=== PATIENT | male | born 1940 ===

== ENCOUNTER 2016-04-20 15:05 | Inpatient (IN) | payer MEDICARE ==
[2016-04-20] MEDS ORDERED: DULCOLAX PR PRN (16:43)
[2016-04-20] MEDS ORDERED: ALUM-MAG HYDROX-SIMETH 200-200-20MG/5ML PO PRN (16:43)
[2016-04-20] MEDS ORDERED: D50W (25GM) IV PRN (16:43)
--- NOTE | 2016-04-20 17:31 | History and Physical Report ---
History of Present Illness Date: 04/20/16 Referring Facility: [facility] Date of admission: 04/20/16 15:05 Chief Complaint: Non-traumatic Brain injury, s/p craniotomy for meningioma resection History of present illness: POST ADMISSION PHYSICIAN EVALUATION ONSET DATE: 04/10/2016 IMPAIRMENT GROUP CODE: 02.1 ETIOLOGIC DIAGNOSIS: Non-traumatic Brain injury, s/p craniotomy for meningioma resection STATUS CHANGES SINCE PREADMISSION SCREENING: PAS has been reviewed. In comparison, pt with no bowel movement in 2 days; condom cath is in place; has required increases in insulin coverage due to elevated blood sugars due to steroids (180s-300s). Pt continues with functional deficits and is appropriate for IRU admission at this time. PREVIOUS FUNCTIONAL STATUS: S/U to Independent for ADLs, gait and transfers CURRENT FUNCTIONAL STATUS: per PAS, s/u to maxA for ADLs; maxA x2 for bed mobility HPI 76 y.o. male with prior history of CVA, seizure disorder, and known meningioma who presented initially to [facility] due to recurrent hypoglycemic events and increased seizures at home. CT Brain was completed and pt was recommended for transfer to [facility] for Neurosurgical evaluation of brain mass. Per daughter, pt had been having seizures and known of mass since 2014, however , on new presentation mass found to have increased in size. Pt also noted to have had worsening left sided weakness from baseline residual of CVA and increased frequency of seizures leading up to recent hospitalization. MRI Brain noted high right parietal/posterior right frontal extra-axial mass with lytic invasion through the high right parietal bone and a large component involving the right parietal scalp, extending minimally into the occipital scalp. Pt also noted to have an additional dural based mass along the right parietal lobe. Pt was taken for craniotomy on 04/14 for partial resection; on steroid taper and Keppra; seen by rad/onc, however pt states at this time he does not want radiation. Acute care course was complicated by acute encephalopathy; ongoing worsening of left sided weakness as this was the same side affected following CVA, now exacerbated by right brain mass; steroid induced hyperglycemia and leukocytosis; uncontrolled hypertension requiring cardene drip, now on oral meds; eliquis held for AFib until cleared to resume per Neurosurgery post-op; acute renal insufficiency. Pt continues with significant functional decline from baseline and cognitive deficits post-op; now admitted to IRU for aggressive therapies and ongoing medical management. Past History Past Medical History: atrial fib (eliquis on hold), cancer (bladder and brain), diabetes, hypertension, seizures, stroke, other (BPH, glaucoma, abdominal hernia ) Past Surgical History: Other (bladder surgery) Social history: lives with family. denies: smoking (former), alcohol abuse Family history: diabetes, hypertension, stroke Medications and Allergies Allergies Allergy/AdvReac Type Severity Reaction Status Date / Time No Known Allergies Allergy Verified 04/20/16 16:28 Active Meds: Active Medications Acetaminophen (Tylenol) 650 mg PO Q4H PRN PRN Reason: Pain MILD(1-3)/Fever >100.5/SAMPSON Al Hydrox/Mg Hydrox/Simethicone (Alum-Mag Hydrox-Simeth [id number]/5ml) 30 ml PO Q4H PRN PRN Reason: Indigestion Amlodipine Besylate (Norvasc) 10 mg PO QDAY [facility] Bisacodyl (Dulcolax) 10 mg [place] QDAY PRN PRN Reason: Constipation unrelieved by MOM Brimonidine Tartrate (Alphagan P 0.15%) 1 drops OU Q8HR [facility] Carvedilol (Coreg) 12.5 mg PO BID [facility] Dexamethasone (Decadron) 2 mg PO TID [facility] Stop: 04/27/16 23:59 Dexamethasone (Decadron) 1 mg PO TID [facility] Stop: 05/05/16 05:59 Dexamethasone (Decadron) 1 mg PO BID [facility] Stop: 05/12/16 05:59 Dexamethasone (Decadron) 1 mg PO QDAY [facility] Stop: 05/19/16 05:59 Dextrose (D50w (25gm)) 50 ml IV PRN PRN PRN Reason: Hypoglycemia Docusate Sodium (Colace) 100 mg PO BID [facility] Gabapentin (Neurontin) 600 mg PO TID [facility] Hydralazine HCl (Apresoline) 25 mg PO Q8HR [facility] Hydrochlorothiazide (Hctz) 12.5 mg PO QDAY [facility] Insulin Aspart (Novolog) 0 units SUB-Q AC [facility] PRN Reason: Protocol Insulin Detemir (Levemir) 35 units SUB-Q QHS [facility] Levetiracetam (Keppra) 1,000 mg PO BID [facility] Losartan Potassium (Cozaar) 100 mg PO QDAY [facility] Oxycodone/Acetaminophen (Percocet 5/325) 1 tab PO Q6H PRN PRN Reason: Pain, Moderate (4-6) Simvastatin (Zocor) 20 mg PO QHS [facility] Tamsulosin HCl (Flomax) 0.4 mg PO QDAY [facility] Review of Systems All systems: negative Constitutional: no poor appetite Ears, nose, mouth and throat: no headache Cardiovascular: no chest pain, no lightheadedness Respiratory: no cough, no shortness of breath Gastrointestinal: constipation (2 days since last bowel movement), no nausea, no vomiting Genitourinary Male: other (condom cath in place) Neurological: weakness (left extremities), numbness (left extremities) Exam - Constitutional Vitals: Vital Signs - 12hr 04/20/16 15:05 Temperature 98.2 F Pulse Rate [ 63 Right] Respiratory 20 Rate Blood Pressure 176/82 [Right Arm] O2 Sat by Pulse 98 Oximetry General appearance: no acute distress, other (daughter present) - EENT Eyes: EOM intact ENT: hearing intact - Neck Neck: supple, normal ROM - Respiratory Respiratory effort: normal Respiratory: bilateral: CTA - Cardiovascular Heart Sounds: Present: S1 & S2 - Extremities Extremity abnormal: edema (mild at left hand), other (stephon to scalp open to air; no active drainage) - Gastrointestinal General gastrointestinal: Present: soft, non-tender, non-distended, normal bowel sounds, hernia (reducible) - Musculoskeletal Musculoskeletal: left sided weakness (3/5, except left foot drop, 0/5 ankle DF) - Neurologic Neurologic: CNII-XII intact, other (decreased sensation on left extremities) - Psychiatric Psychiatric: appropriate mood/affect, intact judgment & insight, memory intact, cooperative - Labs Labs: Laboratory Results - last 72 hr 04/20/16 16:25 POC Glucose 223 H Assessment and Plan Assessment and plan: 76 y.o. male s/p craniotomy for meningioma resection, worsening left sided weakness from baseline; also with noted cognitive deficits, acute renal failure , uncontrolled DM and HTN post-operatively. The patient is medically stable, however, requires ongoing medical management. Pt is appropriate for inpatient rehabilitation admission and is thought to be able to tolerate at least 3 hours of therapy a day, 5 days a week including 1 hour of physical therapy, 1 hour of occupational therapy, and 1 hour of speech therapy. Patient is able to understand and follow basic directions and has attainable rehab goals. Potential barriers/complications include falls, pressure ulcers, recurrent seizures, hyponatremia, DVT, PE, CVA off eliquis for AFib, infection. Plan 1. Rehabilitation- Pt will undergo multidisciplinary/integrative rehab PT/OT/ RN TRANSPLANT, Nursing. Areas to be addressed include, but are not limited to PT for mobility, strengthening, transfer training, ROM, endurance, stairs, balance; OT for ADLs, household tasks, adaptive equipment; RN TRANSPLANT for cognition; Nursing for carryover of therapies, pain control, education, skin integrity, medication management, bowel/bladder management; Nutrition as needed; instructional support services director for discharge planning and equipment needs. Potential interventions include appropriate assistive device or adaptive equipment. Expected overall level of functional improvement by discharge is Melvin to CGA for ADLs, supervision-CGA for transfers and gait. Pt will tentatively be discharged home with outpatient PT/OT/RN TRANSPLANT. Estimated length of stay is 2-3 weeks. 2. non-traumatic brain injury- s/p craniotomy for partial meningioma resection ; follow for headaches; maintain stephon until POD#10; continue steroid taper per Neurosurgery recs 3. seizure d/o- continue Keppra; seizure precautions 4. acute renal failure- noted on labs; recheck labs in AM 5. DM- lantus (sub as levemir in-house); SSI; ADA diet; weaning off steroids 6. HTN- continue current meds; adjust as needed 7. glaucoma- continue eye drops 8. BPH- continue flomax 9. 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- worsening left sided weakness, left foot drop - Patient Problems (1) Meningioma Current Visit: Yes Status: Acute (2) Seizure disorder Current Visit: Yes Status: Acute (3) History of cerebrovascular accident (CVA) with residual deficit Current Visit: Yes Status: Acute (4) Hemiparesis affecting left side as late effect of cerebrovascular accident Current Visit: Yes Status: Acute (5) Left foot drop Current Visit: Yes Status: Acute (6) Diabetes Current Visit: Yes Status: Acute Qualifiers: Diabetes mellitus type: type 2 Diabetes mellitus complication status: with hyperglycemia Diabetes mellitus complication detail: D Diabetic retinopathy severity: D Proliferative retinopathy type: P Diabetes mellitus macular edema: D Diabetes mellitus laborer cook house insulin use: with laborer cook house use Laterality: L Chronic kidney disease stage: C Qualified Code(s): E11.65 - Type 2 diabetes mellitus with hyperglycemia; Z79.4 - shelter (current) use of insulin (7) HTN (hypertension) Current Visit: Yes Status: Acute Qualifiers: Hypertension type: essential hypertension Qualified Code(s): I10 - Essential (primary) hypertension
[2016-04-20] MEDS: DECADRON PO SCH (21:45)
[2016-04-20] MEDS: APRESOLINE PO SCH (21:46)
[2016-04-20] MEDS: COREG PO SCH (21:47)
[2016-04-20] MEDS: KEPPRA PO SCH (21:47)
[2016-04-20] MEDS: ALPHAGAN P 0.15% OU SCH (21:48)
[2016-04-20] MEDS: COLACE PO SCH (21:48)
[2016-04-20] MEDS: ZOCOR PO SCH ×2 (21:49→22:46)
[2016-04-20] MEDS: NEURONTIN PO SCH ×3 (21:50→22:05)
[2016-04-20] MEDS: NEURONTIN ONE ×2 (21:50→22:40)
[2016-04-20] MEDS ORDERED: ZOCOR ONE (21:55)
[2016-04-20] MEDS: LEVEMIR SUB-Q SCH (22:41)
[2016-04-21 05:00] LABS: Hematocrit 33.4 % (35.5-45.6); Hemoglobin 10.8 gm/dl (11.8-15.2); Mean Corpuscular HGB Conc 32 % (32-34); Mean Corpuscular Hemoglobin 29 pg (28-32); Mean Corpuscular Volume 89 fl (84-94); Platelet Count 308 K/mm3 (140-440); Red Blood Count 3.75 M/mm3 (3.65-5.03); Red Cell Distribution Width 15.2 % (13.2-15.2); White Blood Count 11.8 K/mm3 (4.5-11.0)
[2016-04-21 05:22] LABS: Albumin 2.6 g/dL (3.9-5); BUN/Creatinine Ratio 42.5; Bilirubin,Total 0.2 mg/dL (0.1-1.2); Calcium 8.1 mg/dL (8.4-10.2); Chloride 99.2 mmol/L (98-107); Potassium 4.5 mmol/L (3.6-5.0); Total Protein 5.2 g/dL (6.3-8.2)
[2016-04-21 05:53] LABS: Basophils % (Manual) 0 % (0.0-1.8); Blastocytes % (Manual) 0 %; Diff Status Complete; Eosinophils % (Manual) 0 % (0.0-4.3); Platelet Estimate Consistent w Auto; RBC Morphology Normal
[2016-04-21] MEDS: ALPHAGAN P 0.15% OU SCH ×3 (06:00→22:34)
[2016-04-21] MEDS: APRESOLINE PO SCH ×3 (06:45→23:37)
[2016-04-21] MEDS ORDERED: NEURONTIN PO SCH (08:00)
[2016-04-21] MEDS ORDERED: HCTZ PO SCH (08:00)
[2016-04-21] MEDS: COZAAR PO SCH (08:53)
[2016-04-21] MEDS: COREG PO SCH ×2 (08:55→22:20)
[2016-04-21] MEDS: COLACE PO SCH ×2 (08:55→22:19)
[2016-04-21] MEDS: NEURONTIN PO SCH ×3 (08:56→22:17)
[2016-04-21] MEDS: KEPPRA PO SCH ×2 (08:56→22:16)
[2016-04-21] MEDS: FLOMAX PO SCH (08:57)
[2016-04-21] MEDS: NORVASC PO SCH (08:57)
[2016-04-21] MEDS: DECADRON PO SCH ×3 (08:57→22:28)
[2016-04-21] MEDS: NOVOLOG SUB-Q SCH ×3 (09:00→17:35)
--- NOTE | 2016-04-21 15:18 | Progress Note ---
Assessment and Plan 76 y.o. male s/p craniotomy for meningioma resection, worsening left sided weakness from baseline; also with noted cognitive deficits, acute renal failure , uncontrolled DM and HTN post-operatively - non-traumatic brain injury- s/p craniotomy for partial meningioma resection; follow for headaches; maintain stephon until POD#10; continue steroid taper per Neurosurgery recs - seizure d/o- continue Keppra; seizure precautions - acute renal failure- BUN stable at 51; continue to follow - DM- levemir QHS; SSI; ADA diet; resume scheduled mealtime insulin in next 2-3 days; suspect insulin requirements will decrease as steroids are weaned; previously required BID Levemir prior to admission at higher doses of steroids - HTN- d/c HCTZ due to elevated BUN; continue to follow - 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- worsening left sided weakness due to recurrent seizures and enlargement of meningioma, left foot drop ; will likely require AFO at discharge - Patient Problems (1) Meningioma Current Visit: Yes Status: Acute (2) Seizure disorder Current Visit: Yes Status: Acute (3) History of cerebrovascular accident (CVA) with residual deficit Current Visit: Yes Status: Acute (4) Hemiparesis affecting left side as late effect of cerebrovascular accident Current Visit: Yes Status: Acute (5) Left foot drop Current Visit: Yes Status: Acute (6) Diabetes Current Visit: Yes Status: Acute Qualifiers: Diabetes mellitus type: type 2 Diabetes mellitus complication status: with hyperglycemia Diabetes mellitus complication detail: D Diabetic retinopathy severity: D Proliferative retinopathy type: P Diabetes mellitus macular edema: D Diabetes mellitus airline customer service agent insulin use: with airline customer service agent use Laterality: L Chronic kidney disease stage: C Qualified Code(s): E11.65 - Type 2 diabetes mellitus with hyperglycemia; Z79.4 - group home (current) use of insulin (7) HTN (hypertension) Current Visit: Yes Status: Acute Qualifiers: Hypertension type: essential hypertension Qualified Code(s): I10 - Essential (primary) hypertension Subjective Date of service: 04/21/16 Principal diagnosis: NTBI, s/p craniotomy for meningioma resection Interval history: Pt seen in PT gym this afternoon; F/U IPR course for NTBI, s/p craniotomy for meningioma resection. Pt is without any new complaints; ongoing cognitive/ processing deficits noted, left sided weakness Objective - Constitutional Vitals: Vital Signs - 12hr 04/21/16 04/21/16 04/21/16 06:45 08:00 08:53 Temperature 97.6 F Pulse Rate 52 L 57 L Pulse Rate [ 57 L Right Brachial] Respiratory 20 Rate Blood Pressure 164/82 143/73 Blood Pressure 143/73 [Right Arm] O2 Sat by Pulse 98 Oximetry 04/21/16 04/21/16 04/21/16 08:55 10:00 14:21 Temperature Pulse Rate 57 L 63 Pulse Rate [ Right Brachial] Respiratory 20 Rate Blood Pressure 143/73 162/84 Blood Pressure [Right Arm] O2 Sat by Pulse 98 Oximetry General appearance: Present: no acute distress, other (lying on mat) - EENT Eyes: EOM intact ENT: hearing intact, other (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) - Neck Neck: supple - Respiratory Respiratory effort: normal Extremities: No edema - Gastrointestinal General gastrointestinal: Present: soft, non-tender, hernia - Integumentary Integumentary: clear - Musculoskeletal Musculoskeletal: left sided weakness (left foot drop; otherwise 2-3/5 for left extremities) - Neurologic Neurologic: CNII-XII intact - Psychiatric Psychiatric: appropriate mood/affect, no memory intact (oriented to self/place/ date; however, processing deficits noted in more detailed conversation; having difficulty completing multi step commands), cooperative - Allied health notes Allied health notes reviewed: OT (s/u to totalA for ADLs) - Labs CBC & Chem 7: 04/21/16 04:45 04/21/16 04:45 Labs: Abnormal lab results 04/20/16 04/20/16 04/21/16 Range/Units 16:25 21:11 04:45 WBC 11.8 H (4.5-11.0) K/mm3 Hgb 10.8 L (11.8-15.2) gm/dl Hct 33.4 L (35.5-45.6) % Seg Neuts % (Manual) 86.0 H (40.0-70.0) % Lymphocytes % (Manual) 4.0 L (13.4-35.0) % Monocytes % (Manual) 8.0 H (0.0-7.3) % Nucleated RBC % 2.0 H (0.0-0.9) % Seg Neutrophils # Man 10.1 H (1.8-7.7) K/mm3 Lymphocytes # (Manual) 0.5 L (1.2-5.4) K/mm3 Monocytes # (Manual) 0.9 H (0.0-0.8) K/mm3 Sodium (137-145) mmol/L BUN (9-20) mg/dL Glucose (75-100) mg/dL POC Glucose 223 H 245 H (70-105) Calcium (8.4-10.2) mg/dL ALT (7-56) units/L Total Protein (6.3-8.2) g/dL Albumin (3.9-5) g/dL 04/21/16 04/21/16 04/21/16 Range/Units 04:45 06:54 11:51 WBC (4.5-11.0) K/mm3 Hgb (11.8-15.2) gm/dl Hct (35.5-45.6) % Seg Neuts % (Manual) (40.0-70.0) % Lymphocytes % (Manual) (13.4-35.0) % Monocytes % (Manual) (0.0-7.3) % Nucleated RBC % (0.0-0.9) % Seg Neutrophils # Man (1.8-7.7) K/mm3 Lymphocytes # (Manual) (1.2-5.4) K/mm3 Monocytes # (Manual) (0.0-0.8) K/mm3 Sodium 136 L (137-145) mmol/L BUN 51 H (9-20) mg/dL Glucose 192 H (75-100) mg/dL POC Glucose 152 H 271 H (70-105) Calcium 8.1 L (8.4-10.2) mg/dL ALT 70 H (7-56) units/L Total Protein 5.2 L (6.3-8.2) g/dL Albumin 2.6 L (3.9-5) g/dL
[2016-04-21] MEDS: ZOCOR PO SCH (21:30)
[2016-04-21] MEDS: LEVEMIR SUB-Q SCH (22:28)
[2016-04-22] MEDS: APRESOLINE PO SCH ×3 (07:28→21:44)
[2016-04-22] MEDS: ALPHAGAN P 0.15% OU SCH ×3 (07:29→21:47)
[2016-04-22] MEDS: NEURONTIN PO SCH ×3 (08:24→19:52)
[2016-04-22] MEDS: NOVOLOG SUB-Q SCH ×3 (08:24→17:00)
[2016-04-22] MEDS: DECADRON PO SCH ×3 (08:25→19:53)
[2016-04-22] MEDS: PROSCAR PO SCH (08:26)
[2016-04-22] MEDS: COZAAR PO SCH (08:26)
[2016-04-22] MEDS: FLOMAX PO SCH (08:27)
[2016-04-22] MEDS: NORVASC PO SCH (08:28)
[2016-04-22] MEDS: KEPPRA PO SCH ×2 (08:28→21:42)
[2016-04-22] MEDS: COLACE PO SCH ×2 (08:28→21:41)
[2016-04-22] MEDS: COREG PO SCH ×2 (08:28→21:45)
--- NOTE | 2016-04-22 17:23 | IRU Plan of Care ---
Interdisciplinary Plan of Care - IP IRU INTERDISCIPLINARY PLAN: [facility] Inpatient Rehab Unit Plan of Care IRU Interdisciplinary Care Plan Start: 04/20/16 15: 52 Freq: Admission then PRN Status: Active Document 04/22/16 09:10 DB (Rec: 04/22/16 09:15 DB [id number]) Interdisciplinary Problem List Interdisciplinary Problem List Interdisciplinary Problem List Impaired Bathing/Grooming Query Text:Answers will Trigger Problems Impaired Dressing and Outcomes on Worklist. Impaired Mobility Impaired Transfers Impaired Toileting Impaired Problem Solving Impaired Memory Pain Management Knowledge Deficits Impaired Skin/Tissue Integrity Impaired Safety Medications Education Diabetes Education IRU Interdisciplinary Care Plan Therapy Services Therapy Services Will Include: Physical Therapy Query Text:Patient will be seen for a Occupational Therapy minimum of 3 hours of daily therapy 5 Speech Therapy out of 7 days a week. Therapy intensity may be adjusted within a 7 consecutive day period to effectively serve the individual needs of the patient. Treatment Frequency/Intensity/Duration Treatment Frequency 5 days per week Treatment Intensity 1 hour per discipline (PT/OT/ SILVER LAP MACHINE TENDER) daily Treatment Duration 14-21 days Problem Area: Eating/Swallowing Eating/Swallowing Outcomes Eating/Swallowing Interventions Problem Area: Bathing/Grooming Bathing/Grooming Outcomes Improve [place] w/ Bathing Bathing/Grooming Interventions ADL Training Use of Assistive Devices Therapeutic Exercise Therapeutic Activity Neuromuscular Re-Education Balance Work Activity Tolerance Work Patient/Caregiver Education Problem Area: Dressing Dressing Outcomes Improve [place] w/ UB Dressing Improve [place] w/ LB Dressing Dressing Interventions ADL Training Use of Assistive Devices Neuromuscular Re-Education Therapeutic Exercise Balance Work Patient/Caregiver Education Problem Area: Mobility Mobility Outcomes Improve [place] w/ Bed Mobility Improve [place] w/ Ambulation Improve [place] w/ Stairs /Curb Improve [place] w/ Wheelchair Mobility Interventions Therapeutic Exercise Neuromuscular Re-Ed. Modalities Use of Assistive Devices Patient/Caregiver Education Bed Mobility Work Gait Training W/C Mobility Work Problem Area: Transfers Transfers Outcomes Improve [place] w/ Bed Transfers Improve [place] w/ Toilet Transfers Improve [place] w/ Tub/ Shower Transfers Improve [place] w/ Car Transfers Transfers Interventions Transfer Training Therapeutic Exercise Neuromuscular Re-Education Modalities Use of Assistive Devices Patient/Caregiver Education Problem Area: Bowel/Bladder Managment Bowel/Bladder Outcomes Continent of Bladder Continent of Bowel Remain free of UTI Bowel/Bladder Interventions Bladder Training Program Bowel Training Program Patient/Caregiver Education Problem Area: Toileting Toileting Outcomes Improve [place] w/ Toileting Toileting Interventions ADL Training Balance Work Use of Assistive Devices Patient/Caregiver Education Problem Area: Nutrition Nutrition Outcomes Understand and Comply w/ Diet Nutrition Interventions Nutritional Counseling Monitor Nutrient Intake Patient/Caregiver Education Problem Area: Comprehension Comprehension Outcomes Comprehension Interventions Problem Area: Expression Expression Outcomes Expression Interventions Problem Area: Problem Solving Problem Solving Outcomes Improve Problem Solving Problem Solving Interventions Cognitive Training Patient/Caregiver Education Problem Area: Memory Memory Outcomes Use Memory Aids Memory Interventions Cognitive Training Patient/Caregiver Education Problem Area: Pain Management Pain Management Outcomes Demonstrate/Verbalize Pain Strategies Pain Management Interventions Medication Management Positioning/Turning Patient/Caregiver Education Problem Area: Knowledge Deficits Knowledge Deficits Outcomes Verbalize Precautions Knowledge Deficits Interventions Medication Use Education Disease Management Education Safety Education Problem Area: Skin/Tissue Integrity Skin/Tissue Integrity Outcomes Exhibit Healing of Wound/ Incision Demonstrate Understanding of Pressure Relief Skin/Tissue Integrity Interventions Skin/Wound Care Pressure Relief Instruction Positioning/Turning Problem Area: Social Interaction Social Interaction Outcomes Social Interaction Interventions Problem Area: Adjustment to Disability Adjustment to Disability Outcomes Adjustment to Disability Interventions Problem Area: Discharge Concerns Discharge Concerns Outcomes Discharge Home w/ Necessary Equipment Have Home Health/Outpatient Services Discharge Concerns Interventions Discharge Planning Family/Caregiver Conference Family/Caregiver Training Problem Area: Community Reintegration Community Reintegration Outcomes Demonstrate Understanding of Community Resources Community Reintegration Interventions Provide Community Resources Problem Area: Home Management Home Management Outcomes Home Management Interventions Problem Area: Safety Safety Outcomes Provide Safe Environment Safety Interventions Identify Fall Risk Anderson Pt. to Environment Reduce Environmental Hazards Problem Area: Medication Education Medication Education Outcomes Patient/Caregiver will Verbalize Understanding of Medications Medication Education Interventions Explain Administration/Side Effects/Interactions Problem Area: Diabetes Education Diabetes Education Outcomes Demonstrate Knowledge of Resources Availlable in Diabetic Ed. Folder Diabetes Education Interventions Give Pt. Diabetes Education Folder Discuss Pathophysiology of Diabetes Problem Area: Oxygenation Oxygenation Outcomes Oxygenation Interventions Problem Area: Cardiovascular Cardiovascular Outcomes Cardiovascular Interventions Physician Only Medical Prognosis and Rehabilitation Patient demonstrates good Potential (Completed by Physician) rehab potential. Medical Prognosis: Good This plan of care has been developed based on the findings from the pre- admission assessment, post admission physician evaluation, information gathered from the assessments from all therapy disciplines and other pertinent clinicians. The plan of care has been reviewed and discussed in collaboration with the interdisciplinary team. The plan of care will be reviewed and updated at least weekly. 76 y.o. right handed male s/p craniotomy for meningioma resection, worsening left sided weakness from baseline; also with noted cognitive deficits, acute renal failure, uncontrolled DM and HTN post-operatively. The patient remains at risk for falls, pressure ulcers, recurrent seizures, hyponatremia, DVT, PE, CVA off eliquis for AFib, infection. Blood pressure is stable on current regimen; blood sugar remains elevated, started scheduled mealtime insulin; titrate prn. Will need to continue to follow renal function; seizure precautions. Pt is tolerating therapies and remains an appropriate candidate for IRU admission.
--- NOTE | 2016-04-22 17:32 | Progress Note ---
Assessment and Plan 76 y.o. male s/p craniotomy for meningioma resection, worsening left sided weakness from baseline; also with noted cognitive deficits, acute renal failure , uncontrolled DM and HTN post-operatively - non-traumatic brain injury- s/p craniotomy for partial meningioma resection; stephon open to air; continue steroid taper per Neurosurgery recs - seizure d/o- continue Keppra; seizure precautions - acute renal failure- recheck labs in AM - anemia- recheck in AM - leukocytosis- likely steroid induced; afebrile - DM- levemir QHS; resume scheduled mealtime insulin at 3U AC; follow closely to avoid hypoglycemia - HTN- BP stable off HCTZ; follow - 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- worsening left sided weakness due to recurrent seizures and enlargement of meningioma; ongoing left foot drop; will likely require AFO at discharge - Patient Problems (1) Meningioma Current Visit: Yes Status: Acute (2) Seizure disorder Current Visit: Yes Status: Acute (3) History of cerebrovascular accident (CVA) with residual deficit Current Visit: Yes Status: Acute (4) Hemiparesis affecting left side as late effect of cerebrovascular accident Current Visit: Yes Status: Acute (5) Left foot drop Current Visit: Yes Status: Acute (6) Diabetes Current Visit: Yes Status: Acute Qualifiers: Diabetes mellitus type: type 2 Diabetes mellitus complication status: with hyperglycemia Diabetes mellitus complication detail: D Diabetic retinopathy severity: D Proliferative retinopathy type: P Diabetes mellitus macular edema: D Diabetes mellitus adjunct faculty for medical terminology insulin use: with adjunct faculty for medical terminology use Laterality: L Chronic kidney disease stage: C Qualified Code(s): E11.65 - Type 2 diabetes mellitus with hyperglycemia; Z79.4 - termite control technician (current) use of insulin (7) HTN (hypertension) Current Visit: Yes Status: Acute Qualifiers: Hypertension type: essential hypertension Qualified Code(s): I10 - Essential (primary) hypertension (8) Anemia Current Visit: Yes Status: Acute Qualifiers: Anemia type: A Iron deficiency anemia type: I Vitamin B12 deficiency anemia type: V Folate deficiency anemia type: F Bone marrow failure anemia type: B Hemolytic anemia type: H Other causes of anemia: other cause, not classified Qualified Code(s): D64.89 - Other specified anemias (9) Acute renal failure Current Visit: Yes Status: Acute Qualifiers: Acute renal failure type: with acute tubular necrosis Qualified Code(s): N17.0 - Acute kidney failure with tubular necrosis Subjective Date of service: 04/22/16 Principal diagnosis: NTBI, s/p craniotomy for meningioma resection Interval history: Pt seen in room and dining room on today; F/U IPR course for NTBI, s/p craniotomy for meningioma resection. No new complaints on today; denies any headache; tolerating therapies Objective - Constitutional Vitals: Vital Signs - 12hr 04/22/16 04/22/16 04/22/16 07:28 08:00 08:26 Temperature 97.9 F Pulse Rate 60 56 L Pulse Rate [ 56 L Right Brachial] Respiratory 20 Rate Blood Pressure 156/81 156/81 Blood Pressure 156/81 [Right Arm] O2 Sat by Pulse 98 Oximetry 04/22/16 04/22/16 04/22/16 08:28 14:15 16:00 Temperature 97.6 F Pulse Rate 80 Pulse Rate [ 68 Right Brachial] Respiratory 20 Rate Blood Pressure 156/81 155/83 Blood Pressure 123/68 [Right Arm] O2 Sat by Pulse 99 Oximetry General appearance: Present: no acute distress, other (scalp stephon open to air ) - EENT Eyes: EOM intact ENT: hearing intact - Neck Neck: supple, normal ROM - Respiratory Respiratory effort: normal Respiratory: bilateral: CTA - Cardiovascular Heart Sounds: Present: S1 & S2 - Gastrointestinal General gastrointestinal: Present: soft, non-tender, normal bowel sounds - Musculoskeletal Musculoskeletal: left sided weakness - Psychiatric Psychiatric: appropriate mood/affect, cooperative - Allied health notes Allied health notes reviewed: PT (maxA for sit-stand transfer; modA-maxA for sliding board transfers; Criselda for wheelchair mobility), ST (processing deficits) , OT (modA for supine-sit; maxA for sliding board transfers) - Labs CBC & Chem 7: 04/21/16 04:45 04/21/16 04:45 Labs: Abnormal lab results 04/21/16 04/22/16 04/22/16 Range/Units 21:43 06:44 11:35 POC Glucose 330 H 217 H 187 H (70-105) 04/22/16 Range/Units 16:49 POC Glucose 309 H (70-105)
[2016-04-22] MEDS: PERCOCET 5/325 PO PRN (19:52)
[2016-04-22] MEDS: ZOCOR PO SCH (21:43)
[2016-04-22] MEDS: LEVEMIR SUB-Q SCH (22:00)
[2016-04-23 05:03] LABS: Hematocrit 33.1 % (35.5-45.6); Hemoglobin 10.5 gm/dl (11.8-15.2); Mean Corpuscular HGB Conc 32 % (32-34); Mean Corpuscular Hemoglobin 29 pg (28-32); Mean Corpuscular Volume 91 fl (84-94); Platelet Count 287 K/mm3 (140-440); Red Blood Count 3.66 M/mm3 (3.65-5.03); Red Cell Distribution Width 15.3 % (13.2-15.2); White Blood Count 12.4 K/mm3 (4.5-11.0)
[2016-04-23 05:26] LABS: Anion Gap 18 mmol/L; Blood Urea Nitrogen 45 mg/dL (9-20); Calcium 8.1 mg/dL (8.4-10.2); Carbon Dioxide 25 mmol/L (22-30); Chloride 99.4 mmol/L (98-107); Glucose 295 mg/dL (75-100); Potassium 4.6 mmol/L (3.6-5.0); Sodium 138 mmol/L (137-145)
[2016-04-23] MEDS: APRESOLINE PO SCH ×3 (06:16→21:36)
[2016-04-23] MEDS: ALPHAGAN P 0.15% OU SCH ×3 (06:19→21:39)
[2016-04-23] MEDS: NOVOLOG SUB-Q SCH ×3 (09:16→17:37)
[2016-04-23] MEDS: DECADRON PO SCH ×3 (09:18→21:36)
[2016-04-23] MEDS: COZAAR PO SCH (09:20)
[2016-04-23] MEDS: KEPPRA PO SCH ×2 (09:21→21:34)
[2016-04-23] MEDS: NEURONTIN PO SCH ×3 (09:21→21:35)
[2016-04-23] MEDS: COLACE PO SCH ×2 (09:21→21:35)
[2016-04-23] MEDS: PROSCAR PO SCH (09:22)
[2016-04-23] MEDS: FLOMAX PO SCH (09:22)
[2016-04-23] MEDS: NORVASC PO SCH (09:22)
[2016-04-23] MEDS: COREG PO SCH ×2 (09:26→21:37)
--- NOTE | 2016-04-23 16:10 | Progress Note ---
Assessment and Plan 76 y.o. 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- left sided weakness, left foot drop - Patient Problems (1) Meningioma Current Visit: Yes Status: Acute (2) Seizure disorder Current Visit: Yes Status: Acute (3) History of cerebrovascular accident (CVA) with residual deficit Current Visit: Yes Status: Acute (4) Hemiparesis affecting left side as late effect of cerebrovascular accident Current Visit: Yes Status: Acute (5) Left foot drop Current Visit: Yes Status: Acute (6) Diabetes Current Visit: Yes Status: Acute Qualifiers: Diabetes mellitus type: type 2 Diabetes mellitus complication status: with hyperglycemia Diabetes mellitus complication detail: D Diabetic retinopathy severity: D Proliferative retinopathy type: P Diabetes mellitus macular edema: D Diabetes mellitus meterman insulin use: with penitentiary use Laterality: L Chronic kidney disease stage: C Qualified Code(s): E11.65 - Type 2 diabetes mellitus with hyperglycemia; Z79.4 - buttermilk drier operator (current) use of insulin (7) HTN (hypertension) Current Visit: Yes Status: Acute Qualifiers: Hypertension type: essential hypertension Qualified Code(s): I10 - Essential (primary) hypertension (8) Anemia Current Visit: Yes Status: Acute Qualifiers: Anemia type: A Iron deficiency anemia type: I Vitamin B12 deficiency anemia type: V Folate deficiency anemia type: F Bone marrow failure anemia type: B Hemolytic anemia type: H Other causes of anemia: other cause, not classified Qualified Code(s): D64.89 - Other specified anemias (9) Acute renal failure Current Visit: Yes Status: Acute Qualifiers: Acute renal failure type: with acute tubular necrosis Qualified Code(s): N17.0 - Acute kidney failure with tubular necrosis Subjective Date of service: 04/23/16 Principal diagnosis: NTBI, s/p craniotomy for meningioma resection Interval history: Pt seen in room this afternoon; F/U IPR course for NTBI, s/p craniotomy for meningioma resection. C/O constipation on today Objective - Constitutional Vitals: Vital Signs - 12hr 04/23/16 04/23/16 04/23/16 06:16 07:30 09:20 Temperature 99.3 F Pulse Rate 56 L Pulse Rate [ 56 L Right Brachial] Respiratory 20 Rate Blood Pressure 146/80 150/80 Blood Pressure 150/80 [Right Arm] O2 Sat by Pulse 97 Oximetry 04/23/16 04/23/16 04/23/16 09:22 09:26 14:26 Temperature Pulse Rate 56 L 56 L 55 L Pulse Rate [ Right Brachial] Respiratory Rate Blood Pressure 150/80 150/80 155/76 Blood Pressure [Right Arm] O2 Sat by Pulse Oximetry General appearance: Present: no acute distress - EENT Eyes: EOM intact ENT: hearing intact - Neck Neck: supple, normal ROM - Respiratory Respiratory effort: normal Respiratory: bilateral: CTA - Cardiovascular Heart Sounds: Present: S1 & S2 - Gastrointestinal General gastrointestinal: Present: soft, non-tender, non-distended, normal bowel sounds - Musculoskeletal Musculoskeletal: left sided weakness - Psychiatric Psychiatric: appropriate mood/affect, cooperative - Labs CBC & Chem 7: 04/23/16 04:07 04/23/16 04:07 Labs: Abnormal lab results 04/22/16 04/22/16 04/23/16 Range/Units 16:49 21:14 04:07 WBC 12.4 H (4.5-11.0) K/mm3 Hgb 10.5 L (11.8-15.2) gm/dl Hct 33.1 L (35.5-45.6) % RDW 15.3 H (13.2-15.2) % BUN (9-20) mg/dL Glucose (75-100) mg/dL POC Glucose 309 H 369 H (70-105) Calcium (8.4-10.2) mg/dL 04/23/16 04/23/16 04/23/16 Range/Units 04:07 06:14 11:39 WBC (4.5-11.0) K/mm3 Hgb (11.8-15.2) gm/dl Hct (35.5-45.6) % RDW (13.2-15.2) % BUN 45 H (9-20) mg/dL Glucose 295 H (75-100) mg/dL POC Glucose 257 H 251 H (70-105) Calcium 8.1 L (8.4-10.2) mg/dL
[2016-04-23] MEDS: SENOKOT PO PRN (21:35)
[2016-04-23] MEDS: ZOCOR PO SCH (21:36)
[2016-04-23] MEDS: LEVEMIR SUB-Q SCH (21:40)
[2016-04-24] MEDS: APRESOLINE PO SCH ×3 (06:25→21:04)
[2016-04-24] MEDS: ALPHAGAN P 0.15% OU SCH ×3 (06:30→21:08)
[2016-04-24] MEDS: NOVOLOG SUB-Q SCH ×3 (08:14→16:57)
[2016-04-24] MEDS: COLACE PO SCH ×2 (08:16→21:03)
[2016-04-24] MEDS: NEURONTIN PO SCH ×3 (08:16→21:03)
[2016-04-24] MEDS: PROSCAR PO SCH (08:16)
[2016-04-24] MEDS: FLOMAX PO SCH (08:16)
[2016-04-24] MEDS: KEPPRA PO SCH ×2 (08:16→21:03)
[2016-04-24] MEDS: DECADRON PO SCH ×3 (08:17→21:10)
[2016-04-24] MEDS: COZAAR PO SCH (08:17)
[2016-04-24] MEDS: NORVASC PO SCH (08:18)
[2016-04-24] MEDS: COREG PO SCH ×2 (08:18→21:05)
[2016-04-24] MEDS: SENOKOT PO PRN (21:03)
[2016-04-24] MEDS: ZOCOR PO SCH (21:03)
[2016-04-24] MEDS: LEVEMIR SUB-Q SCH (21:34)
[2016-04-25] MEDS: ALPHAGAN P 0.15% OU SCH ×3 (06:00→23:00)
[2016-04-25] MEDS: APRESOLINE PO SCH ×3 (06:01→23:31)
[2016-04-25] MEDS: NEURONTIN PO SCH ×3 (08:48→23:30)
[2016-04-25] MEDS: FLOMAX PO SCH (08:48)
[2016-04-25] MEDS: COLACE PO SCH ×2 (08:48→23:37)
[2016-04-25] MEDS: KEPPRA PO SCH ×2 (08:48→23:00)
[2016-04-25] MEDS: PROSCAR PO SCH (08:48)
[2016-04-25] MEDS: NORVASC PO SCH (08:49)
[2016-04-25] MEDS: DECADRON PO SCH ×3 (08:49→23:30)
[2016-04-25] MEDS: COZAAR PO SCH (08:50)
[2016-04-25] MEDS: COREG PO SCH ×2 (08:51→23:35)
[2016-04-25] MEDS: NOVOLOG SUB-Q SCH ×3 (08:52→16:51)
--- NOTE | 2016-04-25 09:54 | Progress Note ---
Assessment and Plan 76 y.o. 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- left sided weakness, left foot drop - Patient Problems (1) Meningioma Current Visit: Yes Status: Acute (2) Seizure disorder Current Visit: Yes Status: Acute (3) History of cerebrovascular accident (CVA) with residual deficit Current Visit: Yes Status: Acute (4) Hemiparesis affecting left side as late effect of cerebrovascular accident Current Visit: Yes Status: Acute (5) Left foot drop Current Visit: Yes Status: Acute (6) Diabetes Current Visit: Yes Status: Acute Qualifiers: Diabetes mellitus type: type 2 Diabetes mellitus complication status: with hyperglycemia Diabetes mellitus complication detail: D Diabetic retinopathy severity: D Proliferative retinopathy type: P Diabetes mellitus macular edema: D 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 use Laterality: L Chronic kidney disease stage: C Qualified Code(s): E11.65 - Type 2 diabetes mellitus with hyperglycemia; Z79.4 - terminal manager (current) use of insulin (7) HTN (hypertension) Current Visit: Yes Status: Acute Qualifiers: Hypertension type: essential hypertension Qualified Code(s): I10 - Essential (primary) hypertension (8) Anemia Current Visit: Yes Status: Acute Qualifiers: Anemia type: A Iron deficiency anemia type: I Vitamin B12 deficiency anemia type: V Folate deficiency anemia type: F Bone marrow failure anemia type: B Hemolytic anemia type: H Other causes of anemia: other cause, not classified Qualified Code(s): D64.89 - Other specified anemias (9) Acute renal failure Current Visit: Yes Status: Acute Qualifiers: Acute renal failure type: with acute tubular necrosis Qualified Code(s): N17.0 - Acute kidney failure with tubular necrosis Subjective Date of service: 04/25/16 Principal diagnosis: NTBI, s/p craniotomy for meningioma resection Interval history: Pt seen in dining room this AM; F/U IPR course for NTBI, s/p craniotomy for meningioma resection. Constipation resolved; denies any pain or headache Objective - Constitutional Vitals: Vital Signs - 12hr 04/25/16 04/25/16 04/25/16 06:01 08:00 08:49 Temperature 97.4 F L Pulse Rate 56 L 62 Pulse Rate [ 62 Apical] Respiratory 20 Rate Blood Pressure 188/80 160/80 Blood Pressure 160/80 [Right Arm] O2 Sat by Pulse 99 Oximetry 04/25/16 04/25/16 08:50 08:51 Temperature Pulse Rate 62 62 Pulse Rate [ Apical] Respiratory Rate Blood Pressure 160/80 160/80 Blood Pressure [Right Arm] O2 Sat by Pulse Oximetry General appearance: Present: no acute distress, other (stephon open to air) - EENT Eyes: EOM intact ENT: hearing intact - Neck Neck: supple, normal ROM - Respiratory Respiratory effort: normal Respiratory: bilateral: CTA - Cardiovascular Rhythm: regular Heart Sounds: Present: S1 & S2 Extremities: No edema - Gastrointestinal General gastrointestinal: Present: soft, non-tender, non-distended, normal bowel sounds - Musculoskeletal Musculoskeletal: left sided weakness - Neurologic Neurologic: CNII-XII intact - Psychiatric Psychiatric: appropriate mood/affect, cooperative - Allied health notes Allied health notes reviewed: PT (mod-maxA with sliding board transfers; supervision for WC mobility) - Labs CBC & Chem 7: 04/23/16 04:07 04/23/16 04:07 Labs: Abnormal lab results 04/24/16 04/24/16 04/24/16 Range/Units 11:35 16:33 21:07 POC Glucose 351 H 298 H 444 H (70-105) 04/25/16 Range/Units 05:48 POC Glucose 333 H (70-105)
[2016-04-25] MEDS: SENOKOT PO PRN (13:58)
[2016-04-25] MEDS: LEVEMIR SUB-Q SCH (23:00)
[2016-04-25] MEDS: ZOCOR PO SCH (23:31)
[2016-04-25] MEDS: PERCOCET 5/325 PO PRN (23:58)
[2016-04-26 05:07] LABS: Mean Corpuscular HGB Conc 33 % (32-34); Mean Corpuscular Hemoglobin 30 pg (28-32); Mean Corpuscular Volume 91 fl (84-94); Platelet Count 249 K/mm3 (140-440); Red Cell Distribution Width 15.8 % (13.2-15.2)
[2016-04-26 05:23] LABS: Anion Gap 16 mmol/L; BUN/Creatinine Ratio 33.63; Blood Urea Nitrogen 37 mg/dL (9-20); Calcium 8.5 mg/dL (8.4-10.2); Carbon Dioxide 27 mmol/L (22-30); Chloride 101.4 mmol/L (98-107); Glucose 333 mg/dL (75-100); Potassium 4.8 mmol/L (3.6-5.0); Sodium 140 mmol/L (137-145)
[2016-04-26] MEDS: ALPHAGAN P 0.15% OU SCH ×3 (06:30→21:22)
[2016-04-26] MEDS: APRESOLINE PO SCH ×3 (07:17→21:25)
[2016-04-26] MEDS: NOVOLOG SUB-Q SCH ×3 (09:08→17:32)
[2016-04-26] MEDS: NEURONTIN PO SCH ×3 (09:09→21:20)
[2016-04-26] MEDS: NORVASC PO SCH (09:09)
[2016-04-26] MEDS: COZAAR PO SCH (09:10)
[2016-04-26] MEDS: COREG PO SCH ×2 (09:11→21:15)
[2016-04-26] MEDS: KEPPRA PO SCH ×2 (09:11→21:19)
[2016-04-26] MEDS: COLACE PO SCH ×2 (09:11→21:19)
[2016-04-26] MEDS: PROSCAR PO SCH (09:12)
[2016-04-26] MEDS: FLOMAX PO SCH (09:12)
[2016-04-26] MEDS: DECADRON PO SCH ×3 (11:16→21:20)
--- NOTE | 2016-04-26 15:39 | Progress Note ---
Assessment and Plan 76 y.o. 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 Criselda for memory and problem solving. Barriers- processing and carryover of strategies to complete tasks. Team goal is wheelchair level independence and to improve transfers and continence to lesson burden of care for family at discharge. Tentative d/c date is 05/06/2016 - Patient Problems (1) Meningioma Current Visit: Yes Status: Acute (2) Seizure disorder Current Visit: Yes Status: Acute (3) History of cerebrovascular accident (CVA) with residual deficit Current Visit: Yes Status: Acute (4) Hemiparesis affecting left side as late effect of cerebrovascular accident Current Visit: Yes Status: Acute (5) Left foot drop Current Visit: Yes Status: Acute (6) Diabetes Current Visit: Yes Status: Acute (7) HTN (hypertension) Current Visit: Yes Status: Acute Qualifiers: Hypertension type: essential hypertension Qualified Code(s): I10 - Essential (primary) hypertension (8) Anemia Current Visit: Yes Status: Acute (9) Acute renal failure Current Visit: Yes Status: Acute Qualifiers: Acute renal failure type: with acute tubular necrosis Qualified Code(s): N17.0 - Acute kidney failure with tubular necrosis Subjective Date of service: 04/26/16 Principal diagnosis: NTBI, s/p craniotomy for meningioma resection Interval history: Pt seen in room this afternoon; F/U IPR course for NTBI, s/p craniotomy for meningioma resection. Last BM on Monday; however, reported to be small. Will give repeat dose of senokot on today; denies any N/V Objective - Constitutional Vitals: Vital Signs - 12hr 04/26/16 04/26/16 04/26/16 07:17 08:00 09:09 Temperature 98.1 F Pulse Rate 68 64 Pulse Rate [ 55 L Right Brachial] Respiratory 20 Rate Blood Pressure 174/78 168/82 Blood Pressure 168/82 [Right Arm] O2 Sat by Pulse 97 Oximetry 04/26/16 04/26/16 04/26/16 09:10 09:11 15:09 Temperature Pulse Rate 64 64 59 L Pulse Rate [ Right Brachial] Respiratory Rate Blood Pressure 168/82 168/82 167/74 Blood Pressure [Right Arm] O2 Sat by Pulse Oximetry General appearance: Present: no acute distress, other (sitting up in WC; scalp incision well healed; stephon in place) - EENT Eyes: EOM intact ENT: hearing intact - Neck Neck: supple, normal ROM - Respiratory Respiratory effort: normal Respiratory: bilateral: CTA - Cardiovascular Rhythm: regular Heart Sounds: Present: S1 & S2 Extremities: No edema - Gastrointestinal General gastrointestinal: Present: soft, non-tender, normal bowel sounds, hernia (unchanged) - Musculoskeletal Musculoskeletal: left sided weakness - Neurologic Neurologic: CNII-XII intact - Psychiatric Psychiatric: appropriate mood/affect, cooperative - Labs CBC & Chem 7: 04/26/16 04:22 04/26/16 04:22 Labs: Abnormal lab results 04/25/16 04/25/16 04/26/16 Range/Units 16:24 21:13 04:22 RBC 3.30 L (3.65-5.03) M/mm3 Hgb 10.0 L (11.8-15.2) gm/dl Hct 30.0 L (35.5-45.6) % RDW 15.8 H (13.2-15.2) % BUN (9-20) mg/dL Glucose (75-100) mg/dL POC Glucose 344 H 357 H (70-105) 04/26/16 04/26/16 04/26/16 Range/Units 04:22 06:12 11:37 RBC (3.65-5.03) M/mm3 Hgb (11.8-15.2) gm/dl Hct (35.5-45.6) % RDW (13.2-15.2) % BUN 37 H (9-20) mg/dL Glucose 333 H (75-100) mg/dL POC Glucose 295 H 377 H (70-105)
[2016-04-26] MEDS: PERCOCET 5/325 PO PRN (21:14)
[2016-04-26] MEDS: ZOCOR PO SCH (21:19)
[2016-04-26] MEDS: LEVEMIR SUB-Q SCH (21:21)
[2016-04-27] MEDS: APRESOLINE PO SCH ×3 (06:21→22:17)
[2016-04-27] MEDS: ALPHAGAN P 0.15% OU SCH ×3 (06:22→22:19)
[2016-04-27] MEDS: COZAAR PO SCH (07:43)
[2016-04-27] MEDS: FLOMAX PO SCH (07:43)
[2016-04-27] MEDS: NEURONTIN PO SCH ×3 (07:44→20:55)
[2016-04-27] MEDS: COREG PO SCH ×3 (07:44→22:34)
[2016-04-27] MEDS: KEPPRA PO SCH ×3 (07:45→22:37)
[2016-04-27] MEDS: COLACE PO SCH ×3 (07:45→22:36)
[2016-04-27] MEDS: NORVASC PO SCH (07:45)
[2016-04-27] MEDS: DECADRON PO SCH ×3 (07:46→20:52)
[2016-04-27] MEDS: PROSCAR PO SCH (07:46)
[2016-04-27] MEDS: NOVOLOG SUB-Q SCH ×3 (07:49→17:11)
[2016-04-27] MEDS ORDERED: NOVOLOG SUB-Q SCH (11:30)
[2016-04-27] MEDS: SENOKOT PO SCH (12:24)
--- NOTE | 2016-04-27 18:34 | Progress Note ---
Assessment and Plan 76 y.o. male s/p craniotomy for meningioma resection, worsening left sided weakness and cognitive deficits from baseline - non-traumatic brain injury- s/p craniotomy for partial meningioma resection; d /c stephon in AM; continue steroid taper, currently on 2mg TID (last day) - seizure d/o- continue Keppra; seizure precautions - acute renal failure- repeat BMP on Monday - anemia- repeat CBC on Monday - DM- blood sugars remain elevated; maintain on levemir QHS; mealtime insulin increased to 10U; continue to follow closely - HTN- Hydralazine increased to 50mg TID on today - 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- left sided weakness, left foot drop - barriers- deficits in processing, poor trunk control - Patient Problems (1) Meningioma Current Visit: Yes Status: Acute (2) Seizure disorder Current Visit: Yes Status: Acute (3) History of cerebrovascular accident (CVA) with residual deficit Current Visit: Yes Status: Acute (4) Hemiparesis affecting left side as late effect of cerebrovascular accident Current Visit: Yes Status: Acute (5) Left foot drop Current Visit: Yes Status: Acute (6) Diabetes Current Visit: Yes Status: Acute Qualifiers: Diabetes mellitus type: type 2 Diabetes mellitus complication status: with hyperglycemia Diabetes mellitus complication detail: D Diabetic retinopathy severity: D Proliferative retinopathy type: P Diabetes mellitus macular edema: D 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 Laterality: L Chronic kidney disease stage: C Qualified Code(s): E11.65 - Type 2 diabetes mellitus with hyperglycemia; Z79.4 - residential (current) use of insulin (7) HTN (hypertension) Current Visit: Yes Status: Acute Qualifiers: Hypertension type: essential hypertension Qualified Code(s): I10 - Essential (primary) hypertension (8) Anemia Current Visit: Yes Status: Acute Qualifiers: Anemia type: A Iron deficiency anemia type: I Vitamin B12 deficiency anemia type: V Folate deficiency anemia type: F Bone marrow failure anemia type: B Hemolytic anemia type: H Other causes of anemia: other cause, not classified Qualified Code(s): D64.89 - Other specified anemias (9) Acute renal failure Current Visit: Yes Status: Acute Qualifiers: Acute renal failure type: with acute tubular necrosis Qualified Code(s): N17.0 - Acute kidney failure with tubular necrosis Subjective Date of service: 04/27/16 Principal diagnosis: NTBI, s/p craniotomy for meningioma resection Interval history: Pt seen in room on today; F/U IPR course for NTBI, s/p craniotomy for meningioma resection. Continues with constipation, however, reports this is chronic. Senna changed to BID scheduled Objective - Constitutional Vitals: Vital Signs - 12hr 04/27/16 04/27/16 04/27/16 07:43 07:44 07:45 Temperature Pulse Rate 67 57 L 54 L Pulse Rate [ From Monitor] Pulse Rate [ Right Brachial] Respiratory Rate Blood Pressure 185/85 185/85 185/85 Blood Pressure [Right Arm] O2 Sat by Pulse Oximetry 04/27/16 04/27/16 04/27/16 08:00 14:14 16:00 Temperature 97.7 F 98 F Pulse Rate 62 Pulse Rate [ 57 L From Monitor] Pulse Rate [ 56 L Right Brachial] Respiratory 20 20 Rate Blood Pressure 152/70 Blood Pressure 185/85 154/78 [Right Arm] O2 Sat by Pulse 97 98 Oximetry General appearance: Present: no acute distress, other (sitting up in WC) - EENT Eyes: EOM intact ENT: hearing intact - Neck Neck: supple, normal ROM - Respiratory Respiratory effort: normal Extremities: No edema - Musculoskeletal Musculoskeletal: left sided weakness - Neurologic Neurologic: CNII-XII intact - Psychiatric Psychiatric: appropriate mood/affect, cooperative - Allied health notes Allied health notes reviewed: PT (modA for sliding board transfers; poor trunk control limiting ability to stand and ambulate), ST (improved cognition/ processing with tasks), OT (Criselda for sliding board transfers) - Labs CBC & Chem 7: 04/26/16 04:22 04/26/16 04:22 Labs: Abnormal lab results 04/26/16 04/27/16 04/27/16 Range/Units 21:16 05:24 12:08 POC Glucose 359 H 256 H 184 H (70-105) 04/27/16 Range/Units 16:35 POC Glucose 249 H (70-105)
[2016-04-27] MEDS: ZOCOR PO SCH (20:52)
[2016-04-27] MEDS: LEVEMIR SUB-Q SCH (20:58)
[2016-04-28] MEDS: SENOKOT PO SCH ×3 (00:22→23:19)
[2016-04-28] MEDS: APRESOLINE PO SCH ×3 (06:45→21:25)
[2016-04-28] MEDS: DECADRON PO SCH ×4 (06:46→21:00)
[2016-04-28] MEDS: ALPHAGAN P 0.15% OU SCH ×3 (06:47→21:28)
[2016-04-28] MEDS: KEPPRA PO SCH ×2 (08:39→21:27)
[2016-04-28] MEDS: PROSCAR PO SCH (08:39)
[2016-04-28] MEDS: NEURONTIN PO SCH ×3 (08:39→21:24)
[2016-04-28] MEDS: COLACE PO SCH ×2 (08:39→21:27)
[2016-04-28] MEDS: FLOMAX PO SCH (08:39)
[2016-04-28] MEDS: COZAAR PO SCH (08:40)
[2016-04-28] MEDS: COREG PO SCH ×2 (08:40→21:26)
[2016-04-28] MEDS: NORVASC PO SCH (08:41)
[2016-04-28] MEDS: NOVOLOG SUB-Q SCH ×3 (08:43→17:13)
--- NOTE | 2016-04-28 12:44 | Progress Note ---
Assessment and Plan 76 y.o. male s/p craniotomy for meningioma resection, worsening left sided weakness and cognitive deficits from baseline - non-traumatic brain injury- s/p craniotomy for partial meningioma resection; d /c stephon on today; continue steroid taper, reduced to 1mg TID on today as recommended by Neurosurg on transfer - seizure d/o- continue Keppra; seizure precautions; no seizures since admission - acute renal failure- BMP on tomorrow - anemia- CBC on tomorrow - DM- blood sugars much improved on today; maintain on levemir QHS, mealtime insulin 10U - HTN- Hydralazine increased to 50mg TID on yesterday; continue to follow - 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- left sided weakness, left foot drop - continue to address sitting balance, transfers, and pre-gait training - Patient Problems (1) Meningioma Current Visit: Yes Status: Acute (2) Seizure disorder Current Visit: Yes Status: Acute (3) History of cerebrovascular accident (CVA) with residual deficit Current Visit: Yes Status: Acute (4) Hemiparesis affecting left side as late effect of cerebrovascular accident Current Visit: Yes Status: Acute (5) Left foot drop Current Visit: Yes Status: Acute (6) Diabetes Current Visit: Yes Status: Acute Qualifiers: Diabetes mellitus type: type 2 Diabetes mellitus complication status: with hyperglycemia Diabetes mellitus complication detail: D Diabetic retinopathy severity: D Proliferative retinopathy type: P Diabetes mellitus macular edema: D Diabetes mellitus manager intermediate insulin use: with care home use Laterality: L Chronic kidney disease stage: C Qualified Code(s): E11.65 - Type 2 diabetes mellitus with hyperglycemia; Z79.4 - manager intermediate (current) use of insulin (7) HTN (hypertension) Current Visit: Yes Status: Acute Qualifiers: Hypertension type: essential hypertension Qualified Code(s): I10 - Essential (primary) hypertension (8) Anemia Current Visit: Yes Status: Acute Qualifiers: Anemia type: A Iron deficiency anemia type: I Vitamin B12 deficiency anemia type: V Folate deficiency anemia type: F Bone marrow failure anemia type: B Hemolytic anemia type: H Other causes of anemia: other cause, not classified Qualified Code(s): D64.89 - Other specified anemias (9) Acute renal failure Current Visit: Yes Status: Acute Qualifiers: Acute renal failure type: with acute tubular necrosis Qualified Code(s): N17.0 - Acute kidney failure with tubular necrosis Subjective Date of service: 04/28/16 Principal diagnosis: NTBI, s/p craniotomy for meningioma resection Interval history: Pt seen in room this AM with [facility] [employer] [facility]; F/U IPR course for NTBI, s/p craniotomy for meningioma resection. still no BM; also with elevated BP overnight, hydralazine increased on yesterday Objective - Constitutional Vitals: Vital Signs - 12hr 04/28/16 04/28/16 04/28/16 06:45 08:30 08:40 Temperature 97.7 F Pulse Rate 58 L 103 H Pulse Rate [ 103 H Right Brachial] Respiratory 20 Rate Blood Pressure 181/85 164/87 Blood Pressure 164/87 [Right Arm] O2 Sat by Pulse 97 Oximetry 04/28/16 08:41 Temperature Pulse Rate 103 H Pulse Rate [ Right Brachial] Respiratory Rate Blood Pressure 164/87 Blood Pressure [Right Arm] O2 Sat by Pulse Oximetry General appearance: Present: no acute distress, other (stephon open to air) - EENT Eyes: EOM intact ENT: hearing intact - Neck Neck: supple, normal ROM - Respiratory Respiratory effort: normal - Gastrointestinal General gastrointestinal: Present: soft, non-tender - Musculoskeletal Musculoskeletal: left sided weakness - Neurologic Neurologic: CNII-XII intact - Psychiatric Psychiatric: appropriate mood/affect, cooperative - Allied health notes Allied health notes reviewed: nursing (supervision for grooming; min-maxA for remaining ADLs ), PT (min-modA for sliding board transfers; mod-maxA for sit to stand transfers in parallel bars) - Labs CBC & Chem 7: 04/26/16 04:22 04/26/16 04:22 Labs: Abnormal lab results 04/27/16 04/27/16 04/28/16 Range/Units 16:35 20:56 06:47 POC Glucose 249 H 235 H 141 H (70-105) 04/28/16 Range/Units 11:38 POC Glucose 142 H (70-105)
[2016-04-28] MEDS: ZOCOR PO SCH (21:27)
[2016-04-28] MEDS: LEVEMIR SUB-Q SCH (21:30)
[2016-04-28] MEDS: PERCOCET 5/325 PO PRN (21:34)
[2016-04-29] MEDS: APRESOLINE PO SCH ×3 (05:55→22:08)
[2016-04-29] MEDS: ALPHAGAN P 0.15% OU SCH ×3 (05:57→22:46)
[2016-04-29 06:26] LABS: Hematocrit 29.7 % (35.5-45.6); Hemoglobin 9.6 gm/dl (11.8-15.2); Mean Corpuscular HGB Conc 32 % (32-34); Mean Corpuscular Hemoglobin 30 pg (28-32); Mean Corpuscular Volume 92 fl (84-94); Platelet Count 160 K/mm3 (140-440); Red Blood Count 3.23 M/mm3 (3.65-5.03); Red Cell Distribution Width 16.2 % (13.2-15.2); White Blood Count 6.2 K/mm3 (4.5-11.0)
[2016-04-29 06:45] LABS: Anion Gap 16 mmol/L; BUN/Creatinine Ratio 28.18; Blood Urea Nitrogen 31 mg/dL (9-20); Calcium 8.4 mg/dL (8.4-10.2); Carbon Dioxide 26 mmol/L (22-30); Chloride 101.4 mmol/L (98-107); Glucose 172 mg/dL (75-100); Potassium 4.9 mmol/L (3.6-5.0); Sodium 138 mmol/L (137-145)
[2016-04-29] MEDS: DECADRON PO SCH ×3 (08:47→21:00)
[2016-04-29] MEDS: KEPPRA PO SCH ×2 (08:48→22:08)
[2016-04-29] MEDS: COZAAR PO SCH (08:48)
[2016-04-29] MEDS: COLACE PO SCH ×2 (08:49→22:08)
[2016-04-29] MEDS: NORVASC PO SCH (08:49)
[2016-04-29] MEDS: NEURONTIN PO SCH ×3 (08:49→21:00)
[2016-04-29] MEDS: COREG PO SCH ×2 (08:49→22:07)
[2016-04-29] MEDS: FLOMAX PO SCH (08:49)
[2016-04-29] MEDS: PROSCAR PO SCH (08:49)
[2016-04-29] MEDS: NOVOLOG SUB-Q SCH ×3 (08:50→17:19)
[2016-04-29] MEDS: SENOKOT PO SCH ×2 (12:36→22:50)
--- NOTE | 2016-04-29 12:48 | Progress Note ---
Assessment and Plan 76 y.o. 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- left sided weakness, left foot drop - improving transfers; continue to work towards ambulation - recheck labs on Monday - Patient Problems (1) Meningioma Current Visit: Yes Status: Acute (2) Seizure disorder Current Visit: Yes Status: Acute (3) History of cerebrovascular accident (CVA) with residual deficit Current Visit: Yes Status: Acute (4) Hemiparesis affecting left side as late effect of cerebrovascular accident Current Visit: Yes Status: Acute (5) Left foot drop Current Visit: Yes Status: Acute (6) Diabetes Current Visit: Yes Status: Acute Qualifiers: Diabetes mellitus type: type 2 Diabetes mellitus complication status: with hyperglycemia Diabetes mellitus complication detail: D Diabetic retinopathy severity: D Proliferative retinopathy type: P Diabetes mellitus macular edema: D Diabetes mellitus termite control service representative insulin use: with termite control service representative use Laterality: L Chronic kidney disease stage: C Qualified Code(s): E11.65 - Type 2 diabetes mellitus with hyperglycemia; Z79.4 - assistant terminal manager (current) use of insulin (7) HTN (hypertension) Current Visit: Yes Status: Acute Qualifiers: Hypertension type: essential hypertension Qualified Code(s): I10 - Essential (primary) hypertension (8) Anemia Current Visit: Yes Status: Acute Qualifiers: Anemia type: A Iron deficiency anemia type: I Vitamin B12 deficiency anemia type: V Folate deficiency anemia type: F Bone marrow failure anemia type: B Hemolytic anemia type: H Other causes of anemia: other cause, not classified Qualified Code(s): D64.89 - Other specified anemias (9) Acute renal failure Current Visit: Yes Status: Acute Qualifiers: Acute renal failure type: with acute tubular necrosis Qualified Code(s): N17.0 - Acute kidney failure with tubular necrosis Subjective Date of service: 04/29/16 Principal diagnosis: NTBI, s/p craniotomy for meningioma resection Interval history: Pt seen between therapies this AM; F/U IPR course for NTBI, s/p craniotomy for meningioma resection. +BM on yesterday afternoon; reports left LE pain on yesterday, now resolved Objective - Constitutional Vitals: Vital Signs - 12hr 04/29/16 04/29/16 04/29/16 05:55 07:30 08:48 Temperature 98.3 F Pulse Rate 57 L 52 L Pulse Rate [ 52 L Right Brachial] Respiratory 18 Rate Blood Pressure 177/82 157/75 Blood Pressure 157/75 [Right Arm] O2 Sat by Pulse 100 Oximetry 04/29/16 08:49 Temperature Pulse Rate 52 L Pulse Rate [ Right Brachial] Respiratory Rate Blood Pressure 157/75 Blood Pressure [Right Arm] O2 Sat by Pulse Oximetry General appearance: Present: no acute distress, other (in WC) - EENT Eyes: EOM intact ENT: hearing intact - Neck Neck: supple, normal ROM - Respiratory Respiratory effort: normal Respiratory: bilateral: CTA - Cardiovascular Heart Sounds: Present: S1 & S2 Extremities: No edema - Gastrointestinal General gastrointestinal: Present: soft, non-tender, non-distended - Musculoskeletal Musculoskeletal: left sided weakness (no spasticity noted) - Neurologic Neurologic: CNII-XII intact - Psychiatric Psychiatric: appropriate mood/affect, cooperative - Allied health notes Allied health notes reviewed: nursing (supervision to totalA for ADLs), PT (min- modA for transfers; max-totalA for pre-gait steps) - Labs CBC & Chem 7: 04/29/16 06:13 04/29/16 06:12 Labs: Abnormal lab results 04/28/16 04/28/16 04/29/16 Range/Units 16:19 21:24 05:31 RBC (3.65-5.03) M/mm3 Hgb (11.8-15.2) gm/dl Hct (35.5-45.6) % RDW (13.2-15.2) % BUN (9-20) mg/dL Glucose (75-100) mg/dL POC Glucose 140 H 208 H 167 H (70-105) 04/29/16 04/29/16 Range/Units 06:12 06:13 RBC 3.23 L (3.65-5.03) M/mm3 Hgb 9.6 L (11.8-15.2) gm/dl Hct 29.7 L (35.5-45.6) % RDW 16.2 H (13.2-15.2) % BUN 31 H (9-20) mg/dL Glucose 172 H (75-100) mg/dL POC Glucose (70-105)
[2016-04-29] MEDS: LEVEMIR SUB-Q SCH (21:00)
[2016-04-29] MEDS: ZOCOR PO SCH (21:00)
[2016-04-29] MEDS: PERCOCET 5/325 PO PRN (22:09)
[2016-04-30] MEDS: APRESOLINE PO SCH ×3 (06:28→22:17)
[2016-04-30] MEDS: ALPHAGAN P 0.15% OU SCH ×3 (06:29→22:20)
[2016-04-30] MEDS: NOVOLOG SUB-Q SCH ×3 (09:08→17:58)
[2016-04-30] MEDS: FLOMAX PO SCH (09:09)
[2016-04-30] MEDS: COLACE PO SCH ×2 (09:09→22:18)
[2016-04-30] MEDS: DECADRON PO SCH ×3 (09:09→20:06)
[2016-04-30] MEDS: NEURONTIN PO SCH ×3 (09:10→20:06)
[2016-04-30] MEDS: NORVASC PO SCH (09:10)
[2016-04-30] MEDS: COREG PO SCH ×2 (09:10→22:18)
[2016-04-30] MEDS: KEPPRA PO SCH ×2 (09:11→22:18)
[2016-04-30] MEDS: PROSCAR PO SCH (09:11)
[2016-04-30] MEDS: COZAAR PO SCH (09:11)
[2016-04-30] MEDS: SENOKOT PO SCH ×2 (12:10→23:33)
[2016-04-30] MEDS: ZOCOR PO SCH (22:18)
[2016-04-30] MEDS: LEVEMIR SUB-Q SCH (22:19)
[2016-05-01] MEDS: APRESOLINE PO SCH ×3 (06:24→21:49)
[2016-05-01] MEDS: ALPHAGAN P 0.15% OU SCH ×3 (06:24→21:55)
[2016-05-01] MEDS: NOVOLOG SUB-Q SCH ×3 (08:40→17:13)
[2016-05-01] MEDS: NEURONTIN PO SCH ×3 (08:41→20:48)
[2016-05-01] MEDS: KEPPRA PO SCH ×2 (08:41→21:48)
[2016-05-01] MEDS: COLACE PO SCH ×2 (08:41→21:50)
[2016-05-01] MEDS: COZAAR PO SCH (08:42)
[2016-05-01] MEDS: FLOMAX PO SCH (08:42)
[2016-05-01] MEDS: NORVASC PO SCH (08:43)
[2016-05-01] MEDS: DECADRON PO SCH ×3 (08:43→20:48)
[2016-05-01] MEDS: PROSCAR PO SCH (08:44)
[2016-05-01] MEDS: COREG PO SCH ×2 (08:44→21:49)
[2016-05-01] MEDS: PERCOCET 5/325 PO PRN (10:17)
[2016-05-01] MEDS: SENOKOT PO SCH ×2 (12:44→22:59)
[2016-05-01] MEDS: ZOCOR PO SCH (21:50)
[2016-05-01] MEDS: LEVEMIR SUB-Q SCH (21:50)
[2016-05-02 05:09] LABS: Hematocrit 30.6 % (35.5-45.6); Hemoglobin 9.9 gm/dl (11.8-15.2); Mean Corpuscular HGB Conc 32 % (32-34); Mean Corpuscular Hemoglobin 29 pg (28-32); Mean Corpuscular Volume 92 fl (84-94); Platelet Count 107 K/mm3 (140-440); Red Blood Count 3.35 M/mm3 (3.65-5.03); Red Cell Distribution Width 16.8 % (13.2-15.2); White Blood Count 6.5 K/mm3 (4.5-11.0)
[2016-05-02 05:16] LABS: BUN/Creatinine Ratio 20.76; Calcium 8.3 mg/dL (8.4-10.2); Chloride 103.5 mmol/L (98-107); Potassium 4.1 mmol/L (3.6-5.0)
[2016-05-02] MEDS: APRESOLINE PO SCH ×3 (06:56→22:32)
[2016-05-02] MEDS: ALPHAGAN P 0.15% OU SCH ×3 (06:58→23:00)
[2016-05-02] MEDS: NOVOLOG SUB-Q SCH ×3 (09:04→17:17)
[2016-05-02] MEDS: COZAAR PO SCH (09:15)
[2016-05-02] MEDS: KEPPRA PO SCH ×2 (09:16→22:31)
[2016-05-02] MEDS: NEURONTIN PO SCH ×3 (09:16→22:30)
[2016-05-02] MEDS: FLOMAX PO SCH (09:16)
[2016-05-02] MEDS: NORVASC PO SCH (09:17)
[2016-05-02] MEDS: COLACE PO SCH ×2 (09:17→22:33)
[2016-05-02] MEDS: COREG PO SCH ×2 (09:17→22:33)
[2016-05-02] MEDS: DECADRON PO SCH ×3 (09:18→22:31)
[2016-05-02] MEDS: PROSCAR PO SCH (09:18)
[2016-05-02] MEDS ORDERED: SENOKOT PO PRN (09:48)
--- NOTE | 2016-05-02 13:32 | Progress Note ---
Assessment and Plan 76 y.o. male s/p craniotomy for meningioma resection, worsening left sided weakness and cognitive deficits from baseline - non-traumatic brain injury- s/p craniotomy for partial meningioma resection; stephon removed, incision healing well; continue steroid taper, currently on 1mg TID (through 05/05 until next reduction) - seizure d/o- continue Keppra; seizure precautions - acute renal failure- BUN continues to improve; 37-->31-->27 on today - anemia- remains stable - DM- episode of hypoglycemia on evening of 04/29; no further issues; continue current regimen - HTN- consider increasing coreg if remain elevated - 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- left sided weakness, left foot drop - Patient Problems (1) Meningioma Current Visit: Yes Status: Acute (2) Seizure disorder Current Visit: Yes Status: Acute (3) History of cerebrovascular accident (CVA) with residual deficit Current Visit: Yes Status: Acute (4) Hemiparesis affecting left side as late effect of cerebrovascular accident Current Visit: Yes Status: Acute (5) Left foot drop Current Visit: Yes Status: Acute (6) Diabetes Current Visit: Yes Status: Acute Qualifiers: Diabetes mellitus type: type 2 Diabetes mellitus complication status: with hyperglycemia Diabetes mellitus complication detail: D Diabetic retinopathy severity: D Proliferative retinopathy type: P Diabetes mellitus macular edema: D Diabetes mellitus [facility] insulin use: with termite inspector use Laterality: L Chronic kidney disease stage: C Qualified Code(s): E11.65 - Type 2 diabetes mellitus with hyperglycemia; Z79.4 - alf (current) use of insulin (7) HTN (hypertension) Current Visit: Yes Status: Acute Qualifiers: Hypertension type: essential hypertension Qualified Code(s): I10 - Essential (primary) hypertension (8) Anemia Current Visit: Yes Status: Acute Qualifiers: Anemia type: A Iron deficiency anemia type: I Vitamin B12 deficiency anemia type: V Folate deficiency anemia type: F Bone marrow failure anemia type: B Hemolytic anemia type: H Other causes of anemia: other cause, not classified Qualified Code(s): D64.89 - Other specified anemias (9) Acute renal failure Current Visit: Yes Status: Acute Qualifiers: Acute renal failure type: with acute tubular necrosis Qualified Code(s): N17.0 - Acute kidney failure with tubular necrosis Subjective Date of service: 05/02/16 Principal diagnosis: NTBI, s/p craniotomy for meningioma resection Interval history: Pt seen in room this AM; F/U IPR course for NTBI, s/p craniotomy for meningioma resection. +BM over weekend; one episode of hypoglycemia noted Objective - Constitutional Vitals: Vital Signs - 12hr 05/02/16 05/02/16 05/02/16 06:56 07:30 09:15 Temperature 97.9 F Pulse Rate 62 94 H Pulse Rate [ 94 H Apical] Respiratory 20 Rate Blood Pressure 170/83 184/90 Blood Pressure 184/90 [Right Arm] O2 Sat by Pulse 99 Oximetry 05/02/16 09:17 Temperature Pulse Rate 94 H Pulse Rate [ Apical] Respiratory Rate Blood Pressure 184/90 Blood Pressure [Right Arm] O2 Sat by Pulse Oximetry General appearance: Present: no acute distress, other (stephon removed from scalp; incision healing well) - EENT Eyes: EOM intact ENT: hearing intact - Neck Neck: supple, normal ROM - Respiratory Respiratory effort: normal Respiratory: bilateral: CTA - Cardiovascular Rhythm: regular Heart Sounds: Present: S1 & S2 Extremities: No edema - Gastrointestinal General gastrointestinal: Present: soft, normal bowel sounds - Musculoskeletal Musculoskeletal: left sided weakness - Neurologic Neurologic: CNII-XII intact - Psychiatric Psychiatric: appropriate mood/affect, cooperative - Allied health notes Allied health notes reviewed: nursing (totalA for toileting), OT (min-maxA for transfers; SBA-modA for bed mobility) - Labs CBC & Chem 7: 05/02/16 04:18 05/02/16 04:18 Labs: Abnormal lab results 05/01/16 05/01/16 05/01/16 Range/Units 11:35 16:43 21:24 RBC (3.65-5.03) M/mm3 Hgb (11.8-15.2) gm/dl Hct (35.5-45.6) % RDW (13.2-15.2) % Plt Count (140-440) K/mm3 BUN (9-20) mg/dL Glucose (75-100) mg/dL POC Glucose 145 H 181 H 223 H (70-105) Calcium (8.4-10.2) mg/dL 05/02/16 05/02/16 05/02/16 Range/Units 04:18 04:18 06:57 RBC 3.35 L (3.65-5.03) M/mm3 Hgb 9.9 L (11.8-15.2) gm/dl Hct 30.6 L (35.5-45.6) % RDW 16.8 H (13.2-15.2) % Plt Count 107 L (140-440) K/mm3 BUN 27 H (9-20) mg/dL Glucose 169 H (75-100) mg/dL POC Glucose 162 H (70-105) Calcium 8.3 L (8.4-10.2) mg/dL /08/13 Range/Units 11:08 RBC (3.65-5.03) M/mm3 Hgb (11.8-15.2) gm/dl Hct (35.5-45.6) % RDW (13.2-15.2) % Plt Count (140-440) K/mm3 BUN (9-20) mg/dL Glucose (75-100) mg/dL POC Glucose 167 H (70-105) Calcium (8.4-10.2) mg/dL
[2016-05-02] MEDS: ZOCOR PO SCH (22:32)
[2016-05-02] MEDS: LEVEMIR SUB-Q SCH (22:34)
[2016-05-03] MEDS: PERCOCET 5/325 PO PRN (00:17)
[2016-05-03] MEDS: ALPHAGAN P 0.15% OU SCH ×3 (06:41→23:11)
[2016-05-03] MEDS: APRESOLINE PO SCH ×3 (06:44→23:09)
[2016-05-03] MEDS: NOVOLOG SUB-Q SCH ×3 (10:32→18:09)
[2016-05-03] MEDS: NEURONTIN PO SCH ×3 (10:34→23:14)
[2016-05-03] MEDS: NORVASC PO SCH (10:34)
[2016-05-03] MEDS: KEPPRA PO SCH ×2 (10:35→23:11)
[2016-05-03] MEDS: COZAAR PO SCH (10:35)
[2016-05-03] MEDS: COREG PO SCH ×2 (10:37→23:10)
[2016-05-03] MEDS: PROSCAR PO SCH (10:37)
[2016-05-03] MEDS: FLOMAX PO SCH (10:37)
[2016-05-03] MEDS: DECADRON PO SCH ×3 (10:39→23:14)
[2016-05-03] MEDS: COLACE PO SCH ×2 (10:42→23:11)
--- NOTE | 2016-05-03 14:45 | Progress Note ---
Assessment and Plan 76 y.o. 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 Barriers- improved processing , LLE weakness. Family training is scheduled for tomorrow; tentative d/c home on 05/06/16 - Patient Problems (1) Meningioma Current Visit: Yes Status: Acute (2) Seizure disorder Current Visit: Yes Status: Acute (3) History of cerebrovascular accident (CVA) with residual deficit Current Visit: Yes Status: Acute (4) Hemiparesis affecting left side as late effect of cerebrovascular accident Current Visit: Yes Status: Acute (5) Left foot drop Current Visit: Yes Status: Acute (6) Diabetes Current Visit: Yes Status: Acute Qualifiers: Diabetes mellitus type: type 2 Diabetes mellitus complication status: with hyperglycemia Diabetes mellitus complication detail: D Diabetic retinopathy severity: D Proliferative retinopathy type: P Diabetes mellitus macular edema: D Diabetes mellitus superintendent terminal insulin use: with senior living use Laterality: L Chronic kidney disease stage: C Qualified Code(s): E11.65 - Type 2 diabetes mellitus with hyperglycemia; Z79.4 - superintendent terminal (current) use of insulin (7) HTN (hypertension) Current Visit: Yes Status: Acute Qualifiers: Hypertension type: essential hypertension Qualified Code(s): I10 - Essential (primary) hypertension Subjective Date of service: 05/03/16 Principal diagnosis: NTBI, s/p craniotomy for meningioma resection Interval history: Pt seen in room this afternoon; F/U IPR course for NTBI, s/p craniotomy for meningioma resection. No new events on today; family training scheduled for today Objective - Constitutional Vitals: Vital Signs - 12hr 03/07/17 03/07/17 03/07/17 06:44 06:55 08:00 Temperature 97.9 F Pulse Rate 54 L Pulse Rate [ 54 L 60 Right Brachial] Respiratory 18 Rate Blood Pressure 166/80 Blood Pressure 166/80 158/77 [Right Arm] O2 Sat by Pulse 98 Oximetry 05/03/16 10:34 Temperature Pulse Rate 60 Pulse Rate [ Right Brachial] Respiratory Rate Blood Pressure 158/77 Blood Pressure [Right Arm] O2 Sat by Pulse Oximetry General appearance: Present: no acute distress, obese - EENT Eyes: EOM intact ENT: hearing intact - Neck Neck: supple, normal ROM - Respiratory Respiratory effort: normal Extremity abnormal: edema (minimal at left hand; dependent) - Musculoskeletal Musculoskeletal: left sided weakness (2/5) - Neurologic Neurologic: CNII-XII intact - Psychiatric Psychiatric: appropriate mood/affect, cooperative - Labs CBC & Chem 7: 05/02/16 04:18 05/02/16 04:18 Labs: Abnormal lab results 05/02/16 05/02/16 05/03/16 Range/Units 16:38 22:30 06:19 POC Glucose 145 H 252 H 152 H (70-105) 05/03/16 Range/Units 11:22 POC Glucose 217 H (70-105)
[2016-05-03] MEDS: ZOCOR PO SCH (23:10)
[2016-05-03] MEDS: LEVEMIR SUB-Q SCH (23:16)
[2016-05-04] MEDS: APRESOLINE PO SCH ×3 (05:56→21:19)
[2016-05-04] MEDS: ALPHAGAN P 0.15% OU SCH ×3 (05:56→21:27)
[2016-05-04] MEDS ORDERED: COREG PO SCH (08:49)
[2016-05-04] MEDS: NEURONTIN PO SCH ×3 (09:38→21:18)
[2016-05-04] MEDS: COZAAR PO SCH (09:39)
[2016-05-04] MEDS: FLOMAX PO SCH (09:39)
[2016-05-04] MEDS: KEPPRA PO SCH ×2 (09:40→21:18)
[2016-05-04] MEDS: NORVASC PO SCH (09:41)
[2016-05-04] MEDS: PROSCAR PO SCH (09:41)
[2016-05-04] MEDS: DECADRON PO SCH ×3 (09:42→21:17)
[2016-05-04] MEDS: NOVOLOG SUB-Q SCH ×3 (09:43→17:52)
[2016-05-04] MEDS: COLACE PO SCH ×2 (09:44→21:17)
[2016-05-04] MEDS: TYLENOL PO PRN (11:02)
[2016-05-04] MEDS: COREG PO SCH ×2 (11:05→21:19)
--- NOTE | 2016-05-04 14:56 | Progress Note ---
Assessment and Plan 76 y.o. 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- left sided weakness, left foot drop - family training completed with granddaughter on today; tentative d/c home on Monday, 05/06 - Patient Problems (1) Meningioma Current Visit: Yes Status: Acute (2) Seizure disorder Current Visit: Yes Status: Acute (3) History of cerebrovascular accident (CVA) with residual deficit Current Visit: Yes Status: Acute (4) Hemiparesis affecting left side as late effect of cerebrovascular accident Current Visit: Yes Status: Acute (5) Left foot drop Current Visit: Yes Status: Acute (6) Diabetes Current Visit: Yes Status: Acute Qualifiers: Diabetes mellitus type: type 2 Diabetes mellitus complication status: with hyperglycemia Diabetes mellitus complication detail: D Diabetic retinopathy severity: D Proliferative retinopathy type: P Diabetes mellitus macular edema: D Diabetes mellitus group home insulin use: with meterman use Laterality: L Chronic kidney disease stage: C Qualified Code(s): E11.65 - Type 2 diabetes mellitus with hyperglycemia; Z79.4 - skilled nursing (current) use of insulin (7) HTN (hypertension) Current Visit: Yes Status: Acute Qualifiers: Hypertension type: essential hypertension Qualified Code(s): I10 - Essential (primary) hypertension Subjective Date of service: 05/04/16 Principal diagnosis: NTBI, s/p craniotomy for meningioma resection Interval history: Pt seen this AM in PT gym; F/U IPR course for NTBI, s/p craniotomy for meningioma resection. Family present on today for family training; BP elevated overnight, however, improved this AM Objective - Constitutional Vitals: Vital Signs - 12hr 05/04/16 05/04/16 05/04/16 07:30 09:39 10:00 Temperature 97.5 F L Pulse Rate 56 L Pulse Rate [ 56 L 56 L Right Brachial] Respiratory 18 Rate Blood Pressure 139/76 Blood Pressure 139/76 [Right Arm] O2 Sat by Pulse 100 100 Oximetry 05/04/16 13:35 Temperature Pulse Rate 68 Pulse Rate [ Right Brachial] Respiratory Rate Blood Pressure 148/74 Blood Pressure [Right Arm] O2 Sat by Pulse Oximetry General appearance: Present: no acute distress - EENT Eyes: EOM intact ENT: hearing intact - Neck Neck: supple, normal ROM - Respiratory Respiratory effort: normal Respiratory: bilateral: CTA - Cardiovascular Heart Sounds: Present: S1 & S2 - Integumentary Integumentary: clear - Musculoskeletal Musculoskeletal: left sided weakness - Neurologic Neurologic: CNII-XII intact - Psychiatric Psychiatric: appropriate mood/affect, cooperative - Allied health notes Allied health notes reviewed: PT (maxA for sit to stand transfers; maxA up to 25 feet ambulating on HR ), OT (Criselda for sliding board transfers; min-modA for dressing) - Labs CBC & Chem 7: 05/02/16 04:18 05/02/16 04:18 Labs: Abnormal lab results 05/03/16 05/04/16 05/04/16 Range/Units 21:51 06:04 13:04 POC Glucose 323 H 211 H 69 L (70-105)
[2016-05-04] MEDS: ZOCOR PO SCH (21:18)
[2016-05-04] MEDS: LEVEMIR SUB-Q SCH (21:21)
[2016-05-05] MEDS: APRESOLINE PO SCH ×3 (05:18→21:59)
[2016-05-05] MEDS: ALPHAGAN P 0.15% OU SCH ×3 (05:18→21:59)
[2016-05-05] MEDS: DECADRON PO SCH ×3 (05:18→21:53)
[2016-05-05] MEDS: COREG PO SCH ×2 (09:15→21:55)
[2016-05-05] MEDS: COLACE PO SCH ×2 (09:16→21:54)
[2016-05-05] MEDS: NORVASC PO SCH (09:16)
[2016-05-05] MEDS: NEURONTIN PO SCH ×3 (09:17→20:54)
[2016-05-05] MEDS: KEPPRA PO SCH ×2 (09:17→21:53)
[2016-05-05] MEDS: COZAAR PO SCH (09:17)
[2016-05-05] MEDS: PROSCAR PO SCH (09:18)
[2016-05-05] MEDS: FLOMAX PO SCH (09:18)
[2016-05-05] MEDS: TYLENOL PO PRN (09:22)
[2016-05-05] MEDS: NOVOLOG SUB-Q SCH ×3 (09:25→17:41)
[2016-05-05] MEDS ORDERED: COREG PO SCH (10:21)
--- NOTE | 2016-05-05 14:19 | Progress Note ---
Assessment and Plan 76 y.o. 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- left sided weakness, left foot drop - tentative d/c home on tomorrow - Patient Problems (1) Meningioma Current Visit: Yes Status: Acute (2) Seizure disorder Current Visit: Yes Status: Acute (3) History of cerebrovascular accident (CVA) with residual deficit Current Visit: Yes Status: Acute (4) Hemiparesis affecting left side as late effect of cerebrovascular accident Current Visit: Yes Status: Acute (5) Left foot drop Current Visit: Yes Status: Acute (6) Diabetes Current Visit: Yes Status: Acute Qualifiers: Diabetes mellitus type: type 2 Diabetes mellitus complication status: with hyperglycemia Diabetes mellitus complication detail: D Diabetic retinopathy severity: D Proliferative retinopathy type: P Diabetes mellitus macular edema: D Diabetes mellitus intermission coordinator insulin use: with intermission coordinator use Laterality: L Chronic kidney disease stage: C Qualified Code(s): E11.65 - Type 2 diabetes mellitus with hyperglycemia; Z79.4 - termite helper (current) use of insulin (7) HTN (hypertension) Current Visit: Yes Status: Acute Qualifiers: Hypertension type: essential hypertension Qualified Code(s): I10 - Essential (primary) hypertension Subjective Date of service: 05/05/16 Principal diagnosis: NTBI, s/p craniotomy for meningioma resection Interval history: Pt seen in dining room this afternoon; F/U IPR course for NTBI, s/p craniotomy for meningioma resection. Elevated BP again this AM; coreg increased Objective - Constitutional Vitals: Vital Signs - 12hr 05/05/16 05/05/16 05/05/16 05:18 08:00 09:15 Temperature 97.7 F Pulse Rate 83 Pulse Rate [ 59 L Right Brachial] Respiratory 20 Rate Blood Pressure 183/86 196/91 Blood Pressure 200/92 [Right Arm] O2 Sat by Pulse 99 Oximetry 05/05/16 05/05/16 09:17 10:00 Temperature Pulse Rate 62 Pulse Rate [ 62 Right Brachial] Respiratory Rate Blood Pressure 196/91 Blood Pressure [Right Arm] O2 Sat by Pulse 99 Oximetry General appearance: Present: no acute distress - EENT Eyes: EOM intact ENT: hearing intact - Neck Neck: supple, normal ROM - Respiratory Respiratory effort: normal - Integumentary Integumentary: clear - Musculoskeletal Musculoskeletal: left sided weakness - Neurologic Neurologic: CNII-XII intact - Psychiatric Psychiatric: appropriate mood/affect, cooperative - Allied health notes Allied health notes reviewed: PT (Criselda for sliding board transfers; mod-maxA for sit to stand transfers), OT (Criselda for shower transfers) - Labs CBC & Chem 7: 05/02/16 04:18 05/02/16 04:18 Labs: Abnormal lab results 05/04/16 05/04/16 05/05/16 Range/Units 16:23 21:21 06:43 POC Glucose 207 H 233 H 264 H (70-105) 05/05/16 Range/Units 11:38 POC Glucose 167 H (70-105)
[2016-05-05] MEDS: ZOCOR PO SCH (21:54)
[2016-05-05] MEDS: LEVEMIR SUB-Q SCH (22:00)
[2016-05-06] MEDS: ALPHAGAN P 0.15% OU SCH (06:55)
[2016-05-06] MEDS: APRESOLINE PO SCH (06:56)
[2016-05-06] MEDS: NOVOLOG SUB-Q SCH ×2 (09:10→12:13)
[2016-05-06] MEDS: COLACE PO SCH (09:11)
[2016-05-06] MEDS: NORVASC PO SCH (09:12)
[2016-05-06] MEDS: DECADRON PO SCH (09:12)
[2016-05-06] MEDS: FLOMAX PO SCH (09:13)
[2016-05-06] MEDS: COREG PO SCH (09:13)
[2016-05-06] MEDS: KEPPRA PO SCH (09:14)
[2016-05-06] MEDS: COZAAR PO SCH (09:14)
[2016-05-06 09:15] VITALS: BP 182/85
[2016-05-06] MEDS: NEURONTIN PO SCH (09:15)
[2016-05-06] MEDS: PROSCAR PO SCH (09:16)
--- NOTE | 2016-05-06 11:30 | Discharge Summary ---
Providers - Providers Date of Admission: 04/20/16 15:05 Date of discharge: 05/06/16 Attending physician: FLETCHER MACDONALD 04/20/16 16:43 Occupational Therapy Evaluate and Treat [CONS] Routine Comment: Reason For Exam: NTBI, s/p craniotomy for tumor resection Physical Therapy Evaluation and Treat [CONS] Routine Comment: Reason For Exam: NTBI, s/p craniotomy for tumor resection Speech Therapy Evaluation and Treat [CONS] Routine Reason For Exam: NTBI, s/p craniotomy for tumor resection Primary care physician: Dr. Hilda Bustos Hospitalization Reason for admission: NTBI, s/p craniotomy for meningioma resection Condition: Stable Hospital course: 76 y.o. male with prior history of CVA, seizure disorder, and known meningioma who presented initially to [facility] due to recurrent hypoglycemic events and increased seizures at home. CT Brain was completed and pt was recommended for transfer to [facility] for Neurosurgical evaluation of brain mass. Per daughter, pt had been having seizures and known of mass since 2014, however , on new presentation, mass found to have increased in size. Pt also noted to have had worsening left sided weakness from baseline residual of CVA and increased frequency of seizures leading up to recent hospitalization. MRI Brain noted high right parietal/posterior right frontal extra-axial mass with lytic invasion through the high right parietal bone and a large component involving the right parietal scalp, extending minimally into the occipital scalp. Pt also noted to have an additional dural based mass along the right parietal lobe. Pt was taken for craniotomy on 04/14 for partial resection; post- operatively placed on steroid taper and Keppra. During acute care course, pt was seen by rad/onc, however pt stated at that time he did not want radiation. Acute care course was complicated by acute encephalopathy; ongoing worsening of left sided weakness as this was the same side affected following CVA, now exacerbated by right brain mass; steroid induced hyperglycemia and leukocytosis ; uncontrolled hypertension requiring cardene drip, now on oral meds; eliquis held for AFib until cleared to resume per Neurosurgery post-op; acute renal insufficiency. Pt continued with significant functional decline from baseline and cognitive deficits post-op; admitted to IRU for aggressive therapies and ongoing medical management. Pt continued on steroid taper as recommended. HTN and DM regimen required adjustments to improve control. Praveen were discontinued during IRU course and wound was noted to have healed well. Pt continued with cognitive and functional deficits throughout course. On admission, pt required Set-up/SBA for eating and grooming, modA for UB dressing , maxA for bathing and LB dressing, totalA fot toileting; maxAx2 for bed mobility, totalAx2 for transfers, no gait. At the time of discharge, pt has progressed to Melvin for eating, Criselda for UB dressing, modA for LB dressing, Criselda for bed mobility, min-modA for transfers, ambulating 25 feet x2 with HW at maxA ; remains at s/u for grooming, maxA for bathing, totalA for toileting. Family training was completed with son, daughter, and granddaughter. Pt is stable for d/c home on today. >30 mins spent on d/c process; medication reconciliation; pt/family education on insulin usage (has sliding scale instructions at home, however, on 10U at meals while in IRU) Disposition: DISCHARGED TO HOME OR SELFCARE - Discharge Diagnoses (1) Meningioma Status: Acute (2) Seizure disorder Status: Acute (3) History of cerebrovascular accident (CVA) with residual deficit Status: Acute (4) Hemiparesis affecting left side as late effect of cerebrovascular accident Status: Acute (5) Left foot drop Status: Acute (6) Diabetes Status: Acute Qualifiers: Diabetes mellitus type: type 2 Diabetes mellitus complication status: with hyperglycemia Diabetes mellitus complication detail: D Diabetic retinopathy severity: D Proliferative retinopathy type: P Diabetes mellitus macular edema: D 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 Laterality: L Chronic kidney disease stage: C Qualified Code(s): E11.65 - Type 2 diabetes mellitus with hyperglycemia; Z79.4 - intermediate teacher (current) use of insulin (7) HTN (hypertension) Status: Acute Qualifiers: Hypertension type: essential hypertension Qualified Code(s): I10 - Essential (primary) hypertension Core Measure Documentation - Palliative Care Palliative Care/ Comfort Measures: Not Applicable - Core Measures Any of the following diagnoses?: stroke, history only - Stroke Discharge Requirements Statin for LDL = or >70 mg/dl on DC: Yes Anticoag for atrial fib/atrial flutter: Not Applicable Antithrombotic for ischemic stroke: No Reason for no antithrombotic on DC: Medical Contraindication Exam - Constitutional Vitals: Temp Pulse Resp BP Pulse Ox 97.8 F 68 20 182/85 100 05/06/16 08:00 05/06/16 09:14 05/06/16 08:00 05/06/16 09:14 05/06/16 08:00 General appearance: Present: no acute distress - EENT Eyes: Present: EOM intact ENT: hearing intact - Neck Neck: Present: supple, normal ROM - Respiratory Respiratory effort: normal - Extremities Extremities: No edema - Musculoskeletal Musculoskeletal: left sided weakness - Psychiatric Psychiatric: appropriate mood/affect, cooperative - Neurologic Neurologic: CNII-XII intact Plan Activity: no driving until cleared by PCP, up only with assistance, fall precautions Weight Bearing Status: Full Weight Bearing Diet: low cholesterol, low salt, diabetic Wound: keep clean and dry Special Instructions: record daily BP diary, record blood sugar diary, physical therapy, occupational therapy, other ([employer]; outpatient therapies at [facility]) Durable Medical Equipment Needed Upon Discharge: Hospital Bed, other (sliding board; [facility] – [place], [place]- [facility]) Additional Instructions: Pt provided with prescriptions from [facility] for oxycodone, maalox, keppra, flomax, colace, humalog sliding scale; family educated that patient has been on 10U of insulin prior to meals, however, will need to monitor this appropriately to avoid hypoglycemia. F/U with PCP in 3-5 days; Dr. Horowitz, Neurosurgery in 1-2 weeks Follow up with: FLETCHER MACDONALD MD [Primary Care Provider] - 7 Days Prescriptions: Insulin Detemir [Levemir] 35 units SUB-Q QHS 30 Days Simvastatin [Zocor TAB] 20 mg PO QHS #30 tablet amLODIPine [Norvasc] 10 mg PO QDAY #30 tablet Brimonidine 0.15% [Alphagan P 0.15%] 1 drops OU Q8HR #1 bottle Carvedilol [Coreg] 25 mg PO BID #60 tablet Dexamethasone [Decadron] 1 mg PO BID #18 tablet Famotidine [Pepcid] 20 mg PO BID #60 tablet Finasteride [Proscar] 5 mg PO QDAY #30 tablet Gabapentin [Neurontin] 600 mg PO TID #90 capsule hydrALAZINE [Apresoline TAB] 50 mg PO Q8HR #90 tablet Losartan [Cozaar] 100 mg PO QDAY #30 tablet
[2016-05-06] MEDS ORDERED: PEPCID PO SCH (22:00)
[2016-05-12] MEDS ORDERED: DECADRON PO SCH (06:00)
== END 2016-05-06 14:00 | disposition home or self-care (01) | DRG 54 ==
LOC: 3B 15:05
PROVIDERS: ADMIT Family Medicine; ATTEND Family Medicine
DX: D32.0 Benign neoplasm of cerebral meninges (principal); N17.0 Acute kidney failure with tubular necrosis; G81.94 Hemiplegia, unspecified affecting left nondominant side; G40.909 Epilepsy, unspecified, not intractable, without status epilepticus; I48.91 Unspecified atrial fibrillation; I10 Essential (primary) hypertension; H40.9 Unspecified glaucoma; N40.0 Benign prostatic hyperplasia without lower urinary tract symptoms; E11.65 Type 2 diabetes mellitus with hyperglycemia; R41.89 Other symptoms and signs involving cognitive functions and awareness; D64.89 Other specified anemias; D64.9 Anemia, unspecified; M21.372 Foot drop, left foot; Z85.51 Personal history of malignant neoplasm of bladder; Z83.3 Family history of diabetes mellitus; Z82.49 Family history of ischemic heart disease and other diseases of the circulatory system; Z82.3 Family history of stroke; Z79.4 Long term (current) use of insulin
CPT/HCPCS: 36415; 80048; 80053; 82962; 85007; 85025; 85027; J1815; J1818; J8540